=== PATIENT | female | born 1965 | race Caucasian/White ===

== ENCOUNTER 2016-10-13 09:03 | Emergency (ER) | payer OTHER ==
--- NOTE | 2016-10-13 09:56 | RAD ---
SHOULDER-RIGHT 2 OR MORE VIEWS History: Shoulder pain after fall. Comparison: None. Findings: The osseous structures appear to be intact with no discrete fracture visualized. The glenohumeral alignment appears to be within expected. The acromiohumeral distance is well maintained. No soft tissue calcifications are identified. The acromioclavicular joint is not widened. The included lung field appears to be unremarkable. Impression: 1. Negative views of the right shoulder.
== END 2016-10-13 10:28 | disposition home or self-care (01) ==
LOC: ED 09:03
DX: S46.911A Strain of unspecified muscle, fascia and tendon at shoulder and upper arm level, right arm, initial encounter (principal); W00.0XXA Fall on same level due to ice and snow, initial encounter; Y93.01 Activity, walking, marching and hiking; Y92.9 Unspecified place or not applicable

== ENCOUNTER 2017-02-10 17:22 | Emergency (ER) | payer OTHER, MEDICAID ==
[2017-02-10] MEDS ORDERED: IOPAMIDOL 370 (76%) 100 ML VIAL IV ONE (17:23)
[2017-02-10 18:15] LABS: PH,URINE 6.5 (5.0-8.0); URINE BILIRUBIN NEGATIVE (NEGATIVE); URINE BLOOD NEGATIVE (NEGATIVE); URINE GLUCOSE (UA) NEGATIVE (NEGATIVE); URINE LEUKOCYTE ESTERASE NEGATIVE (NEGATIVE); URINE NITRITE NEGATIVE (NEGATIVE); URINE PROTEIN NEGATIVE (NEGATIVE); URINE UROBILINOGEN NORMAL (0-1 mg/dl)
[2017-02-10 18:21] LABS: URINE APPEARANCE CLEAR; URINE COLOR YELLOW
[2017-02-10] MEDS ORDERED: PROCHLORPERAZINE 5 MG/ML 2 ML VIAL ONE (18:51)
[2017-02-10] MEDS ORDERED: FENTANYL 100 MCG/2 ML VIAL ONE (18:51)
[2017-02-10 19:14] LABS: ABSOLUTE NEUTROPHIL COUNT 2.7 K/mm3 (1.8-7.7); BASO % 0.6 % (0.2-1.0); EOS # 0.2 (0.0-0.5); EOS % 3.1 % (0.9-2.9); HEMATOCRIT 39.6 % (37.0-47.0); IMM NEUT% 0.3 % (0-1); LYMPH # 3.1 (1.0-4.8); LYMPH % 47.3 % (15-45); MEAN CELL VOLUME 88.2 fl (81.0-99.0); MEAN CORPUSCULAR HGB CONC 32.8 g/dl (33.0-37.0); MEAN PLATELET VOLUME 9.9 fl (7.4-10.4); MONO # 0.5 (0.0-0.8); MONO % 6.9 % (4-12); NEUT % 41.8 % (43-75); PLATELET COUNT 251 K/mm3 (130-400); RED CELL DISTRIBUTION WIDTH 12.3 % (11.5-14.5)
[2017-02-10 19:19] LABS: ALB/GLOB RATIO 1.6 (>1.0); ALBUMIN 4.2 gm/dL (3.5-5.7); CALCIUM 9.9 mg/dL (8.6-10.3)
--- NOTE | 2017-02-10 20:28 | CT ---
CT ABDOMEN AND PELVIS WITH CONTRAST HISTORY: Left flank pain. TECHNIQUE: Following intravenous administration of 100cc of Isovue-370, contiguous axial images were acquired from the lung bases to the ischial tuberosities. Oral contrast was not administered. COMPARISON: 10/03/2005 FINDINGS: LUNG BASES: No gross airspace consolidation or pleural effusion. LIVER: Anterior left hepatic lobe cyst, 1.6 cm in size. Additional smaller cystic lesions are noted. Features of fatty infiltration. SPLEEN: Redemonstration of splenic artery aneurysm, now partially calcified, unchanged at 8 mm in size. PANCREAS: No focal lesion. ADRENAL GLANDS: No mass effect. KIDNEYS: Redemonstration of left-sided pelvicaliectasis which appears increased over the interval. While While evaluation is limited by intravenous contrast, no obvious dominant renal calculi are noted. The ureters are not dilated, no ureteral calculus identified. Symmetric renal enhancement pattern. GALLBLADDER: Surgically absent. BOWEL: Moderate fecal loading. Limited assessment of the distal colon due to decompression. No abnormal small bowel dilatation. APPENDIX: Grossly unremarkable. PELVIC ORGANS: Post hysterectomy change. A left adnexal cyst measures 3 x 2.7 x 3 cm in size. FREE FLUID: No gross free fluid identified. ABDOMINOPELVIC LYMPH NODES: No abnormally enlarged lymph nodes identified. ABDOMINAL AORTA: Normal caliber. OSSEOUS STRUCTURES: Minor focus of decreased attenuation at the left femoral head is stable. Findings of early lower lumbar facet degeneration. No destructive lesions. IMPRESSION: 1. Progressive pelvicaliectasis of the left kidney without ureteral dilatation; partial left ureteropelvic junction obstruction is possible. No obvious obstructive renal calculus. 2. 3 cm left adnexal cyst. Eventual sonography is recommended. 3. Nonobstructive, noninflammatory appearance of bowel. 4. Multiple hepatic cysts. 5. Postcholecystectomy and post hysterectomy change. 6. Early changes of lower lumbar facet degeneration. Results were electronically transmitted to the electronic medical record at 02/10/2017 at 2023 hours.
== END 2017-02-10 21:16 | disposition home or self-care (01) ==
LOC: ED 17:22
DX: R10.32 Left lower quadrant pain (principal); J45.909 Unspecified asthma, uncomplicated; E11.9 Type 2 diabetes mellitus without complications; E03.9 Hypothyroidism, unspecified
CPT/HCPCS: 83690; 85025; 80053; 81003; 74177; 96375; 99284 ×2; 96374; 96361 ×2; J0780; J3010; Q9967